=== PATIENT | female | born 1990 | race American Indian/Alaskan Native ===

== ENCOUNTER 2017-03-20 09:06 | Outpatient (CLI) | payer MEDICAID ==
--- NOTE | 2017-03-20 10:37 | XRay Report ---
LEFT KNEE RADIOGRAPHS INDICATION: Left knee pain. COMPARISON: None similar. FINDINGS: AP, lateral and oblique left knee radiographs demonstrate intact bony articulation and appearance. Normal soft tissues without evidence of suprapatellar effusion. CONCLUSION: Normal left knee radiographs. Thank you for the opportunity to participate in this patient's care.
== END 2017-03-20 09:07 | disposition home or self-care (01) ==
LOC: XRAY 09:06
PROVIDERS: ATTEND Family Medicine
DX: M25.562 Pain in left knee (principal); J45.909 Unspecified asthma, uncomplicated

== ENCOUNTER 2017-06-13 10:23 | Emergency (ER) | payer MEDICAID ==
[2017-06-13 10:36] VITALS: BP 127/78
--- NOTE | 2017-06-13 10:36 | Emergency Department Report ---
Stated Complaint: ABD PAIN/NAUSEA Time Seen by Provider: 06/13/17 10:33 - HPI History of Present Illness: PT c/o nausea and intermittent dizziness. PT states she is having pelvic cramps. PT states she thinks she is . - ROS Review of Systems: - vaginal bleeding - vomiting - Exam Physical Exam: thin female, no cva tenderness zaina abd soft mild suprapubic tenderness MSE screening note: Focused history and physical exam performed. Due to findings the following was ordered: labs ED Disposition for MSE Condition: Stable
[2017-06-13 11:15] LABS: Bilirubin,Urine NEG (Negative); Blood,Urine NEG (Negative); Ketones,Urine NEG (Negative); Leukocyte Esterase,Urine NEG (Negative); Mucus,Urine 1+ /HPF; Nitrite,Urine NEG (Negative); Protein,Urine <15 mg/dL mg/dL (Negative); Urobilinogen,Urine < 2.0 mg/dL (<2.0)
[2017-06-13 11:35] LABS: Basophils % (Auto) 0.4 % (0.0-1.8); Hematocrit 36.6 % (30.3-42.9); Hemoglobin 12.1 gm/dl (10.1-14.3); Mean Corpuscular HGB Conc 33 % (30-34); Mean Corpuscular Hemoglobin 27 pg (28-32); Mean Corpuscular Volume 80 fl (79-97); Platelet Count 238 K/mm3 (140-440); Red Blood Count 4.57 M/mm3 (3.65-5.03); White Blood Count 5.8 K/mm3 (4.5-11.0)
[2017-06-13 12:05] LABS: Alanine Aminotransferase 10 units/L (7-56); Albumin 4.4 g/dL (3.9-5); Albumin/Globulin Ratio 1.4 %; Alkaline Phosphatase 30 units/L (35-129); Anion Gap 15 mmol/L; BUN/Creatinine Ratio 22; Blood Urea Nitrogen 13 mg/dL (7-17); Calcium 9.3 mg/dL (8.4-10.2); Carbon Dioxide 26 mmol/L (22-30); Chloride 103.5 mmol/L (98-107); Glucose 105 mg/dL (65-100); Potassium 3.7 mmol/L (3.6-5.0); Sodium 141 mmol/L (137-145); Total Protein 7.5 g/dL (6.3-8.2)
== END 2017-06-13 13:55 | disposition left against medical advice (07) ==
LOC: ED 10:23
DX: R10.9 Unspecified abdominal pain (principal); R11.0 Nausea; Z53.21 Procedure and treatment not carried out due to patient leaving prior to being seen by health care provider
CPT/HCPCS: 36415; 80053; 81001; 84702; 85025

== ENCOUNTER 2017-07-22 07:42 | Emergency (ER) | payer MEDICAID ==
[2017-07-22 07:51] VITALS: BP 130/72
[2017-07-22 08:30] LABS: Mucus,Urine 1+ /HPF
--- NOTE | 2017-07-22 08:30 | Emergency Department Report ---
ED Headache HPI - General Chief Complaint: Headache Stated Complaint: HEADACHE/NAUSEA Time Seen by Provider: 07/22/17 07:59 Source: patient, family Exam Limitations: no limitations - History of Present Illness Timing/Duration: 24 hours Quality: moderate Head Injury Location: occipital Recent Head Trauma: no recent headache/trauma, chronic headaches, other (preg) Associated Symptoms: nausea/vomiting. denies: denies symptoms, confusion, fatigue, facial pain, fever/chills, flushing, loss of consciousness, nasal congestion, nasal drainage, numbness in legs/feet, rash, seizures, sinus infection, stiff neck, vision changes, weakness Allergies/Adverse Reactions: Allergies Penicillins Allergy (Verified 02/28/14 12:38) Swelling Home Medications: Ambulatory Orders Pnv with Ca,No.71/Iron/FA [ Vitamin Tablet] 1 tab PO QDAY 02/28/14 L.acidoph,Paracasei, B.lactis [Probiotic] 1 each PO BID #29 capsule 03/06/16 Ondansetron [Zofran TAB] 4 mg PO Q8HR PRN #10 tablet 07/22/17 ED Review of Systems ROS: Stated complaint: HEADACHE/NAUSEA Other details as noted in HPI Comment: All other systems reviewed and negative Gastrointestinal: nausea, vomiting Genitourinary: other (preg lmp 4 w ago; has seen ob) Neurological: as per HPI, headache ED Past Medical Hx - Past Medical History Hx Hypertension: No Hx Congestive Heart Failure: No Hx Diabetes: No Hx Deep Vein Thrombosis: No Hx Renal Disease: No Hx Sickle Cell Disease: No Hx Seizures: No Hx Asthma: Yes Hx COPD: No Hx HIV: No Additional medical history: migraines. a1 - Social History Smoking Status: Never Smoker Substance Use Type: None - Medications Home Medications: Home Medications Medication Instructions Recorded Confirmed Last Taken Type Pnv with Ca,No.71/Iron/FA 1 tab PO QDAY 02/28/14 05/18/14 05/17/14 History [ Vitamin Tablet] L.acidoph,Paracasei, B.lactis 1 each PO BID #29 capsule 03/06/16 Unknown Rx [Probiotic] Ondansetron [Zofran TAB] 4 mg PO Q8HR PRN #10 tablet 07/22/17 Unknown Rx ED Physical Exam - General Limitations: No Limitations General appearance: alert, in no apparent distress - Head Head exam: Present: atraumatic - Eye Eye exam: Present: PERRL, EOMI - ENT ENT exam: Present: mucous membranes moist - Neck Neck exam: Present: normal inspection - Respiratory Respiratory exam: Present: normal lung sounds bilaterally - Cardiovascular Cardiovascular Exam: Present: regular rate - GI/Abdominal GI/Abdominal exam: Present: soft, normal bowel sounds. Absent: distended, tenderness, guarding, rebound, rigid, diminished bowel sounds, hyperactive bowel sounds, hypoactive bowel sounds, organomegaly, mass, bruit, pulsatile mass , hernia - Rectal Rectal exam: Present: deferred - External exam: Present: normal external exam - Extremities Exam Extremities exam: Present: full ROM, normal capillary refill. Absent: tenderness, pedal edema - Back Exam Back exam: Present: normal inspection, full ROM. Absent: tenderness, CVA tenderness (R), CVA tenderness (L) - Neurological Exam Neurological exam: Present: alert, oriented X3, CN II-XII intact, normal gait, reflexes normal. Absent: altered - Psychiatric Psychiatric exam: Present: normal affect, normal mood, other (here w and 2 kids) - Skin Skin exam: Present: warm, dry, intact, normal color ED Course Vital Signs 07/22/17 07:46 Temperature 98 F Pulse Rate 82 Respiratory 20 Rate Blood Pressure 130/72 O2 Sat by Pulse 100 Oximetry - Reevaluation(s) Reevaluation #1: 07/22/17 to er preg approx 4 w nausea vomit in am here w kids and states she gets chronic emmanuel and did w her other preg tylenol not helping does not want meds that would hurt baby neuro intact ambulatory taking po in no acute distress has seen her ob already and has follow up no abd pain no vag bleed or dc no active vomiting in er discussed w Dr Ace Reevaluation #2: 07/22/17 10:45 feels much better p fluids and reglan dc home w fu w obgyn on Monday vss. nad neuro intact labs noted ED Medical Decision Making - Lab Data Result diagrams: 07/22/17 09:09 07/22/17 09:09 - Medical Decision Making see note - Differential Diagnosis preg. vomiting/headache Critical care attestation.: If time is entered above; I have spent that time in minutes in the direct care of this critically ill patient, excluding procedure time. ED Disposition Clinical Impression: , Headache, Chronic headaches, Vomiting during Disposition: DC-01 TO HOME OR SELFCARE Is pt being admited?: No Does the pt Need Aspirin: No Condition: Stable Instructions: (ED), Acute Nausea and Vomiting (ED) Additional Instructions: rest fluids tylenol for pain call ob for advise on headache management Prescriptions: Ondansetron [Zofran TAB] 4 mg PO Q8HR PRN #10 tablet PRN Reason: Vomiting Referrals: PRIMARY CARE, [Primary Care Provider] - 3-5 Days Time of Disposition: 10:27
[2017-07-22 08:31] LABS: Bilirubin,Urine NEG (Negative); Blood,Urine NEG (Negative); Ketones,Urine NEG (Negative); Leukocyte Esterase,Urine NEG (Negative); Nitrite,Urine NEG (Negative); Protein,Urine <15 mg/dL mg/dL (Negative); Urobilinogen,Urine < 2.0 mg/dL (<2.0)
[2017-07-22] MEDS ORDERED: REGLAN IV ONE (08:44)
[2017-07-22] MEDS ORDERED: D5/0.45NS 1,000 ML IV SCH (09:00)
[2017-07-22 09:36] LABS: Hemoglobin 11.5 gm/dl (10.1-14.3); Mean Corpuscular HGB Conc 34 % (30-34); Mean Corpuscular Hemoglobin 28 pg (28-32); Mean Corpuscular Volume 82 fl (79-97); Platelet Count 177 K/mm3 (140-440); Red Blood Count 4.13 M/mm3 (3.65-5.03); Red Cell Distribution Width 15.5 % (13.2-15.2); White Blood Count 4.4 K/mm3 (4.5-11.0)
[2017-07-22 09:58] LABS: Alanine Aminotransferase 14 units/L (7-56); Albumin/Globulin Ratio 1.3 %; Alkaline Phosphatase 28 units/L (35-129); Anion Gap 15 mmol/L; BUN/Creatinine Ratio 16; Blood Urea Nitrogen 8 mg/dL (7-17); Carbon Dioxide 24 mmol/L (22-30); Chloride 102.6 mmol/L (98-107); Glucose 133 mg/dL (65-100); Sodium 138 mmol/L (137-145)
== END 2017-07-22 10:42 | disposition home or self-care (01) ==
LOC: ED 07:42
DX: O21.9 Vomiting of pregnancy, unspecified (principal); O26.891 Other specified pregnancy related conditions, first trimester; R51 Headache; G89.29 Other chronic pain; Z3A.01 Less than 8 weeks gestation of pregnancy; Z88.0 Allergy status to penicillin
CPT/HCPCS: 36415; 80053; 81001; 81025; 84702; 85025; 86900; 86901; 96361; 96374; 99283; J2765

== ENCOUNTER 2017-09-14 03:22 | Emergency (ER) | payer MEDICAID ==
[2017-09-14 03:39] VITALS: BP 115/71
[2017-09-14] MEDS ORDERED: REGLAN ONE (03:44)
[2017-09-14] MEDS ORDERED: REGLAN IV ONE (03:50)
[2017-09-14 04:14] LABS: Basophils % (Auto) 0.6 % (0.0-1.8); Eosinophils # (Auto) 0.3 K/mm3 (0.0-0.4); Eosinophils % (Auto) 4.6 % (0.0-4.3); Hemoglobin 12.1 gm/dl (10.1-14.3); Lymphocytes # (Auto) 1.8 K/mm3 (1.2-5.4); Lymphocytes % (Auto) 26.8 % (13.4-35.0); Mean Corpuscular HGB Conc 35 % (30-34); Mean Corpuscular Hemoglobin 29 pg (28-32); Mean Corpuscular Volume 83 fl (79-97); Monocytes # (Auto) 0.5 K/mm3 (0.0-0.8); Monocytes % (Auto) 7.7 % (0.0-7.3); Platelet Count 205 K/mm3 (140-440); Red Blood Count 4.22 M/mm3 (3.65-5.03); Red Cell Distribution Width 14.3 % (13.2-15.2)
[2017-09-14 04:28] LABS: Alanine Aminotransferase 8 units/L (7-56); BUN/Creatinine Ratio 25; Blood Urea Nitrogen 10 mg/dL (7-17); Calcium 9.4 mg/dL (8.4-10.2); Hemolysis Index 5; Lipase 67 units/L (13-60)
== END 2017-09-14 16:25 | disposition left against medical advice (07) ==
LOC: ED 03:22
DX: R11.2 Nausea with vomiting, unspecified (principal); Z53.21 Procedure and treatment not carried out due to patient leaving prior to being seen by health care provider
CPT/HCPCS: 36415; 80053; 83690; 84702; 85025; J2765

== ENCOUNTER 2017-10-26 09:04 | Outpatient (CLI) | payer MEDICAID ==
[2017-10-26] MEDS ORDERED: LACTATED RINGERS 1,000 ML IV ONE ×2 (10:01→10:56)
[2017-10-26 10:09] LABS: Bacteria,Urine 1+ /HPF (Negative); Bilirubin,Urine NEG (Negative); Blood,Urine NEG (Negative); Color,Urine Yellow (Yellow); Mucus,Urine 3+ /HPF; Nitrite,Urine NEG (Negative)
[2017-10-26] MEDS ORDERED: ZOFRAN IV ONE (10:22)
[2017-10-26] MEDS ORDERED: ROCEPHIN 1,000 MG in NACL 0.9% 50 ML IV ONE (10:24)
[2017-10-26 11:18] VITALS: BP 107/60
--- NOTE | 2017-10-26 14:09 | Ultrasound Report ---
ULTRASOUND OB LIMITED History: Abdominal cramping during Technique: Transabdominal ultrasound with Doppler interrogation. Gestation: Single Position: Cephalic Heart Rate: 160 BPM Cervical length: 3.2 cm (Normal > 3 cm)
== END 2017-10-26 12:55 | disposition home or self-care (01) ==
LOC: TRG 09:04
PROVIDERS: ATTEND Obstetrics & Gynecology
DX: O26.892 Other specified pregnancy related conditions, second trimester (principal); R10.9 Unspecified abdominal pain; O47.02 False labor before 37 completed weeks of gestation, second trimester; Z3A.22 22 weeks gestation of pregnancy
CPT/HCPCS: 59025; 76815; 81001; 96360; 96361; 96365; J0696; J7120

== ENCOUNTER 2017-12-17 01:14 | Outpatient (CLI) | payer MEDICAID ==
[2017-12-17] MEDS ORDERED: LACTATED RINGERS 1,000 ML ONE (01:55)
[2017-12-17 02:10] VITALS: BP 87/50
[2017-12-17] MEDS ORDERED: BRETHINE SUB-Q ONE (02:35)
[2017-12-17] MEDS ORDERED: LACTATED RINGERS 1,000 ML IV ONE (02:35)
== END 2017-12-17 03:38 | disposition home or self-care (01) ==
LOC: TRG 01:14
PROVIDERS: ATTEND Obstetrics & Gynecology
DX: Z34.93 Encounter for supervision of normal pregnancy, unspecified, third trimester (principal); Z3A.29 29 weeks gestation of pregnancy
CPT/HCPCS: 59025; 96360; 96372; J3105; J7120

== ENCOUNTER 2018-01-05 21:32 | Outpatient (CLI) | payer MEDICAID ==
[2018-01-05 21:53] VITALS: BP 103/54
[2018-01-05] MEDS ORDERED: LACTATED RINGERS 1,000 ML IV ONE (22:03)
[2018-01-05 22:21] LABS: Bilirubin,Urine NEG (Negative); Blood,Urine NEG (Negative); Color,Urine Yellow (Yellow); Mucus,Urine FEW /HPF; Protein,Urine <15 mg/dL mg/dL (Negative); Urobilinogen,Urine < 2.0 mg/dL (<2.0)
[2018-01-05] MEDS ORDERED: BRETHINE SUB-Q ONE (23:51)
== END 2018-01-06 00:56 | disposition home or self-care (01) ==
LOC: TRG 21:32 → LD 21:38 → TRG 01-06 00:56
PROVIDERS: ATTEND Obstetrics & Gynecology
DX: O47.03 False labor before 37 completed weeks of gestation, third trimester (principal); Z3A.32 32 weeks gestation of pregnancy
CPT/HCPCS: 59025; 81001; 96360; 96372; J3105; J7120

== ENCOUNTER 2018-05-24 08:53 | Day surgery (SDC) | payer MEDICAID ==
--- NOTE | 2018-05-23 23:47 | History and Physical Report ---
History of Present Illness Date of examination: 05/21/18 History of present illness: Patient has been reassessed/reevaluated. H&P has been reviewed. No interval changes. Patient desires sterilization.Discuss the permanency of sterilization. High risk of regret and 0.5 to 1% risk of failure. Discussed the different risk of abdominal versus vaginal approaches Patient desires laparoscopic tubal ligation Vital Signs: Patient Profile: 27 Years Old Female LMP: 05/04/2018 Height: 64.25 inches (163.19 cm) Weight: 100 pounds BMI: 17.03 BSA: 1.46 Menstrual History: LMP (date): 05/04/2018 Past History : 4 Term Births: 3 Premature Births: 0 Living Children: 3 Para: 3 Mult. Births: 0 Prev : 0 Aborta: 1 Elect. Ab: 0 Spont. Ab: 1 Ectopics: 0 # 1 Delivery date: 2010 Weeks Gestation: 40 labor: no Delivery type: Anesthesia type: epidural Delivery location: [facility] [place] Sex: Female weight: 6-4 Comments: denies # 2 Delivery date: 06/10/2014 Weeks Gestation: term Delivery type: Delivery location: [facility] [place] Infant Sex: Male weight: 7-8 Name: [place] Comments: pt states she had cervical shortening between 22-24 weeks; no labor, no bleeding # 3 Delivery date: 01/21/2015 Weeks Gestation: 11 Delivery type: SAB Comments: pt did not know she was # 4 Delivery date: 03/06/2018 Weeks Gestation: 40 Delivery type: Vaginal Hours of labor: 10 Anesthesia type: epidural Delivery location: [facility] Infant Sex: male weight: 7.56 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 of genital herpes: no Partner hx. of genital herpes: no Hx of STD: none Current Allergies (reviewed today): PENICILLIN (Critical) Past Medical History: underweight Asthma--has Flonase and Ventolin Past Surgical History: negative Family History Summary: MGM - Has Family History of Diabetes - Entered On: 02/09/2015 Mother (biol.) - Has No Family History of Ovarvian Cancer - Entered On: 02/09/2015 Risk Factors: Smoked Tobacco Use: Never smoker Smokeless Tobacco Use: Never Passive smoke exposure: no Drug use: no HIV high-risk behavior: no Alcohol use: no Exercise: yes Seatbelt use: 100 % Review of Systems General Denies fever, chills, sweats, anorexia, fatigue, weakness, malaise, weight loss and sleep disorder. Denies vaginal discharge, incontinence, dysuria, hematuria, urinary frequency, amenorrhea, menorrhagia, abnormal vaginal bleeding, pelvic pain, genital sores, decreased libido, painful periods, painful sex, urinary urgency, hot flashes, vaginal dryness, vaginal itching and vaginal odor. CV Denies chest pains, palpitations, syncope, dyspnea on exertion, orthopnea, PND and peripheral edema. Resp Denies cough, dyspnea at rest, excessive sputum, hemoptysis, wheezing and pleurisy. GI Denies nausea, vomiting, diarrhea, constipation, change in bowel habits, abdominal pain, melena, hematochezia, jaundice, gas/bloating, indigestion/ heartburn, dysphagia and odynophagia. Breast Denies left breast lump, right breast lump, nipple discharge, bloody discharge from nipple, breast pain, abnormal mammogram and breast enlargement. Psych Denies depression, anxiety, irritability and mood swings. Past History Past Medical History: other (See HPI) Past Surgical History: Other (See HPI) Social history: other (See HPI) Family history: other (See HPI) Medications and Allergies Allergies Allergy/AdvReac Type Severity Reaction Status Date / Time Penicillins Allergy Swelling Verified 05/21/18 11:24 Home Medications Medication Instructions Recorded Confirmed Last Taken Type ALBUTEROL Inhaler(NF) [VENTOLIN 2 puff IH PRN PRN 05/21/18 05/21/18 Unknown History Inhaler(NF)] Albuterol Sulfate [Albuterol 0.63% 0.63 mg IH TID PRN 05/21/18 05/21/18 Unknown History NEBS] Review of Systems Constitutional: other (See HPI) Exam - Physical Exam Narrative exam: HEENT: normocephalic, no lesions or deformities Neck/Thyroid: supple, thyroid normal Skin no abnormal lesions or rashes Chest: respiratory effort normal, clear to auscultation Breasts: skin/areolae normal, no masses, no nipple discharge, no erythema/warmth /tenderness, and axillae normal. CV: regular, normal S1-S2, no murmur, no rub, no gallop Abdomen: soft, non-tender, no masses, bowel sounds normal Musculoskeletal: grossly normal ROM in joints, no joint tenderness or muscle weakness Neuro: no gross anomalities Extremities: no discoloration or edema TRAINING AND DEVELOPMENT SPECIALIST Exams Vulva/Vagina: normal appearance, no lesions. Cervix: normal appearance, no lesions. Uterus: normal position, midline, mobile Adnexae: no masses or tenderness Rectovaginal: exam defered Assessment and Plan - Patient Problems (1) Encounter for sterilization Current Visit: No Status: Acute Plan to address problem: Discuss the risks of the surgery including infection, bleeding possibly heavy enough to require a blood transfusion, possible damage to adjacent organs. Discuss permanent nature of the procedure and the 1% failure rate. Discuss of possibility of laparotomy needed
[2018-05-24] MEDS ORDERED: LACTATED RINGERS 1,000 ML IV SCH (09:58)
[2018-05-24] MEDS ORDERED: NEURONTIN PO NR (09:59)
[2018-05-24] MEDS ORDERED: VERSED IV NR (10:00)
--- NOTE | 2018-05-24 10:43 | Anesthesia Day of Surgery ---
Anesthesia Day of Surgery - Day of Surgery Patient Examined: Yes Patient H&P Reviewed: Yes Patient is NPO: Yes
--- NOTE | 2018-05-24 10:43 | Anesthesia Consultation ---
Anesthesia Consult and Med Hx Date of service: 05/24/18 - Airway Anesthetic Teeth Evaluation: Good, Caps ROM Head & Neck: Adequate Mental/Hyoid Distance: Adequate Mallampati Class: Class I Intubation Access Assessment: Good - Pulmonary Exam CTA: Yes - Cardiac Exam Cardiac Exam: RRR - Pre-Operative Health Status ASA Pre-Surgery Classification: ASA2 Proposed Anesthetic Plan: General - Pulmonary Hx Asthma: Yes (inhaler use approx 1x/month. Asymptomatic today.) COPD: No Hx Pneumonia: No - Cardiovascular System Hx Hypertension: No Hx Heart Attack/AMI: No - Central Nervous System Hx Seizures: No CVA: No - Gastrointestinal Hx Gastroesophageal Reflux Disease: No - Endocrine Hx Renal Disease: No Hx Liver Disease: No Hx Insulin Dependent Diabetes: No Hx Thyroid Disease: No - Hematic Hx Anemia: Yes - Additional Comments Anesthesia Medical History Comments: No prior anesthetics. No FHx anesthetic complications.
[2018-05-24] MEDS ORDERED: MARCAINE 0.5% INFILTRATI ONE ×2 (10:44→11:40)
[2018-05-24] MEDS ORDERED: ZEMURON IV ONE (10:45)
[2018-05-24] MEDS ORDERED: DIPRIVAN 10 MG/ML IV ONE (10:45)
[2018-05-24] MEDS ORDERED: DILAUDID ONE ×2 (10:45→12:31)
[2018-05-24] MEDS ORDERED: XYLOCAINE MPF 2% ONE (10:45)
[2018-05-24] MEDS ORDERED: DECADRON ONE (11:12)
[2018-05-24] MEDS ORDERED: ZOFRAN ONE (11:12)
[2018-05-24] MEDS ORDERED: ROBINUL ONE ×2 (11:12→11:33)
[2018-05-24] MEDS ORDERED: BLOXIVERZ ONE (11:12)
[2018-05-24] MEDS ORDERED: MARCAINE 0.25% INFILTRATI ONE (11:15)
[2018-05-24] MEDS ORDERED: TORADOL ONE (11:31)
[2018-05-24] MEDS ORDERED: SILVER NITRATE TP ONE ×2 (11:45→11:46)
--- NOTE | 2018-05-24 11:48 | Operative Report ---
Operative Report Operative Report: Pre-operative diagnosis: Patient desires permanent sterilization Post-operative diagnosis: Same Procedure name(s): Laparoscopic bilateral tubal ligation with Falope-Rings Surgeon: Kar Byrd MD Want Ad Receiver: [] Anesthesia: General endotracheal EBL: Minimal Complications: None Findings: Patient with uterus approximately 8-10 weeks in size with normal fallopian tubes bilaterally Specimen(s): None Patient was brought in the operating room. General anesthesia was induced without difficulty. She was placed in dorsal lithotomy position. Prepped and draped in usual sterile manner. Her urinary bladder with was emptied with a red rubber catheter. Speculum placed in her vagina and Sargis uterine manipulator was placed for uterine manipulation. Attention was then switched to the patient's abdomen. An infra-umbilical incision was made with a scalpel. This incision was spread with a hemostat. A 5 mm trocar was placed in this incision while lifting high the abdominal wall. Intra-abdominal presence was verified directly with the laparoscope. The patient was then insufflated to approximately 3 L of CO2 gas. The patient's findings as noted above. An accessory puncture was made suprapubically. The 8 mm trocar was placed through this incision under direct visualization with no evidence of internal organ damage. Each of the fallopian tube were identified by its fimbriated end. A portion approximately 1-2 cm from each cornua was grasped with the Falope ring applicator. Falope-Rings were placed without any difficulty bilaterally. At this time all instruments were removed. The patient was deinsufflated. The skin incisions were closed subcuticular with 4-0 Vicryl. Marcaine was given subcuticularly for postoperative pain relief. The patient tolerated procedure well. She was awakened in the operating room and accompanied to the recovery room in good condition.
--- NOTE | 2018-05-24 11:51 | Short Stay Summary ---
Short Stay Documentation Date of service: 05/24/18 - History H&P: dictated Past Medical History: other (See HPI) Past Surgical History: Other (See HPI) Social history: other (See HPI) - Allergies and Medications Current Medications: Allergies Penicillins Allergy (Verified 05/21/18 11:24) Swelling Home Medications Medication Instructions Recorded Confirmed Last Taken Type ALBUTEROL Inhaler(NF) [VENTOLIN 2 puff IH PRN PRN 05/21/18 05/21/18 Unknown History Inhaler(NF)] Albuterol Sulfate [Albuterol 0.63% 0.63 mg IH TID PRN 05/21/18 05/21/18 Unknown History NEBS] oxyCODONE /ACETAMINOPHEN [Percocet 1 - 2 tab PO Q4H PRN #30 tablet 05/24/18 Unknown Rx 5/325 mg] Active Medications Celecoxib (Celebrex) 200 mg PO PREOP NR Stop: 05/24/18 23:59 Gabapentin (Neurontin) 300 mg PO PREOP NR Stop: 05/24/18 23:59 Lactated Ringer's (Lactated Ringers) 1,000 mls @ 75 mls/hr IV DIRECT YOLANDA Stop: 05/24/18 23:59 Midazolam HCl (Versed) 2 mg IV PREOP NR Stop: 05/24/18 23:59 - Brief post op/procedure progress note Date of procedure: 05/24/18 (see dictated operative note) - Hospital course Hospital course: Patient was admitted underwent the above him procedure without any complications. Patient will be discharged with follow-up in office in 1-2 weeks for postop check. - Disposition Condition at discharge: Good Disposition: DC-01 TO HOME OR SELFCARE - Discharge Diagnoses (1) Encounter for sterilization Status: Acute Short Stay Discharge Plan Follow up with: NYLA RAMÍREZ MD [Primary Care Provider] - 7 Days Prescriptions: oxyCODONE /ACETAMINOPHEN [Percocet 5/325 mg] 1 - 2 tab PO Q4H PRN #30 tablet PRN Reason: Pain
[2018-05-24] MEDS ORDERED: PERCOCET 5/325 PO PRN (12:26)
[2018-05-24] MEDS ORDERED: ZOFRAN IV PRN (12:26)
[2018-05-24] MEDS ORDERED: PERCOCET 5/325 ONE (12:32)
[2018-05-24] MEDS: DILAUDID IV PRN ×2 (12:33→12:43)
[2018-05-24 13:35] VITALS: BP 129/92
== END 2018-05-24 08:54 | disposition home or self-care (01) ==
LOC: OR 08:53
PROVIDERS: ATTEND Obstetrics & Gynecology
DX: Z30.2 Encounter for sterilization (principal); G43.909 Migraine, unspecified, not intractable, without status migrainosus; J45.909 Unspecified asthma, uncomplicated; Z79.899 Other long term (current) drug therapy; Z88.0 Allergy status to penicillin; Z86.2 Personal history of diseases of the blood and blood-forming organs and certain disorders involving the immune mechanism; Z98.890 Other specified postprocedural states; Z80.8 Family history of malignant neoplasm of other organs or systems
CPT/HCPCS: 58671; 81025; J1100; J1170; J2250; J2405; J2704; J2710; J7120; J1885